=== PATIENT | female | born 1940 | race Caucasian/White ===

== ENCOUNTER 2023-08-03 08:03 | Day surgery (SDC) | payer MEDICARE, OTHER ==
[~2023-08-03] VITALS: Ht 149.9 cm; Wt 55.9 kg
[2023-08-03] MEDS ORDERED: SODIUM CHLORIDE 0.9% 1,000 ML ONE (08:30)
[2023-08-03] MEDS ORDERED: OSIM80TA PO (09:19)
[2023-08-03] MEDS ORDERED: ALBU18HF7 PO (09:19)
[2023-08-03] MEDS ORDERED: RANO500T6 PO (09:19)
[2023-08-03] MEDS ORDERED: APIX5TAB PO (09:19)
[2023-08-03] MEDS ORDERED: LEVO100 PO (09:19)
[2023-08-03] MEDS ORDERED: TIOT185 IH (09:19)
[2023-08-03] MEDS ORDERED: OMEP40CA21 PO (09:19)
[2023-08-03] MEDS ORDERED: MONT-40 PO (09:19)
[2023-08-03] MEDS ORDERED: VIBE75TA PO (09:19)
[2023-08-03] MEDS ORDERED: FLUT16H NASAL (09:19)
[2023-08-03] MEDS: SODIUM CHLORIDE 0.9% 1,000 ML IV ONE (09:26)
[2023-08-03] MEDS ORDERED: OXYGEN THERAPY IH SCH (11:15)
== END 2023-08-03 12:05 | disposition home or self-care (01) ==
LOC: SURGERY 08:03
PROVIDERS: ATTEND Specialist
DX: D50.0 Iron deficiency anemia secondary to blood loss (chronic) (principal); R19.7 Diarrhea, unspecified; K29.40 Chronic atrophic gastritis without bleeding; K29.50 Unspecified chronic gastritis without bleeding; J45.909 Unspecified asthma, uncomplicated; I10 Essential (primary) hypertension; I26.99 Other pulmonary embolism without acute cor pulmonale; Z86.010 Personal history of colon polyps; Z85.118 Personal history of other malignant neoplasm of bronchus and lung; Z90.49 Acquired absence of other specified parts of digestive tract; Z98.890 Other specified postprocedural states
CPT/HCPCS: 88305; 88312; 88313; 43239; 45378; C1769; J7030